=== PATIENT | male | born 1975 | race American Indian/Alaskan Native ===

== ENCOUNTER 2017-02-05 18:54 | Emergency (ER) | payer OTHER ==
[2017-02-05 18:54] VITALS: BMI 39.5
[2017-02-05] MEDS ORDERED: Oxycodone/Acetaminophen 5/325 mg Tab PO STA (19:37)
[2017-02-05] MEDS ORDERED: Sodium Chloride 0.9% 1,000 ML IV STA (19:37)
--- NOTE | 2017-02-05 19:38 | ED PDOC ---
HPI: General Adult Time Seen by Provider: 02/05/17 19:13 Chief Complaint (Nursing): Abdominal Pain History Per: Patient Additional Complaint(s): Pt. states for the past 2 days he's had non-radiating epigastric abdominal pain. 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 He then went to [facility] today and had blood work and a repeat CT done and was told everything was normal so he was dc'd. Pain has persisted prompting this ED visit. +nause and non-bloody vomiting. Denies fever, chest pain, SOB, diarrhea, trauma, hematemesis. Past Medical History Reviewed: Historical Data, Nursing Documentation, Vital Signs Vital Signs: Last Vital Signs Temp 99.9 F H 02/05/17 18:56 Pulse 70 02/05/17 18:56 Resp 18 02/05/17 18:56 BP 116/83 02/05/17 18:56 Pulse Ox 99 02/05/17 19:41 - Medical History PMH: Anemia, Asthma, Gall Bladder Disease (LAP SILVIA ON 09/27/15), Pancreatitis Denies: Depression, HTN, Chronic Kidney Disease - Surgical History Surgical History: Cholecystectomy Denies: Pacemaker - Family History Family History: States: No Known Family Hx - Immunization History Hx Tetanus Toxoid Vaccination: No Hx Influenza Vaccination: Yes Hx Pneumococcal Vaccination: No - Home Medications Home Medications: Ambulatory Orders Medication Instructions Recorded Omeprazole [Prilosec] 40 mg PO DAILY #14 ecc 11/30/15 Ursodiol 300 mg PO BID 12/12/15 Prednisone [Shirin] 5 mg PO DAILY 04/09/16 Omeprazole 40 mg PO DAILY #30 natasha. 05/21/16 - Allergies Allergies/Adverse Reactions: Allergies Allergy/AdvReac Type Severity Reaction Status Date / Time No Known Allergies Allergy Verified 05/21/16 07:14 Review of Systems ROS Statement: Except As Marked, All Systems Reviewed And Found Negative Gastrointestinal: Positive for: Nausea, Vomiting, Abdominal Pain Physical Exam - Reviewed Nursing Documentation Reviewed: Yes Vital Signs Reviewed: Yes - Physical Exam Appears: Positive for: Well, Non-toxic, No Acute Distress Head Exam: Positive for: ATRAUMATIC, NORMAL INSPECTION, NORMOCEPHALIC Skin: Positive for: Normal Color, Warm. Negative for: Rash Eye Exam: Positive for: EOMI, Normal appearance, PERRL ENT: Positive for: Normal ENT Inspection Neck: Positive for: Normal, Painless ROM Cardiovascular/Chest: Positive for: Regular Rate, Rhythm Respiratory: Positive for: CNT, Normal Breath Sounds Gastrointestinal/Abdominal: Positive for: Normal Exam, Bowel Sounds, Soft. Negative for: Tenderness, Mass Back: Positive for: Normal Inspection. Negative for: L CVA Tenderness, R CVA Tenderness Extremity: Positive for: Normal ROM Neurologic/Psych: Positive for: Alert, Oriented. Negative for: Aphasia, Facial Droop - ECG O2 Sat by Pulse Oximetry: 99 - Progress ED Course And Treament: Labs ordered. Percocet 1 tab PO, zofran 4mg IV, IV NS bolus ordered. Disposition - Clinical Impression Clinical Impression: Abdominal pain, Fever - Patient ED Disposition Is Patient to be Admitted: Transfer of Care (Signed out to [facility] pending diagnostics, labs.) - Disposition Disposition Time: 20:00 Condition: STABLE Forms: [employer] (Nepali)
[2017-02-05 20:16] LABS: BASO # 0.1 K/uL (0.0-0.2); BASO % 0.6 % (0.0-2.0); EOS # 0.2 K/uL (0.0-0.7); EOS % 1.4 % (0.0-4.0); HEMATOCRIT 39.6 % (35.0-51.0); LYMPH # 1.6 K/uL (1.0-4.3); LYMPH % 14.2 % (20.0-40.0); MEAN CELL VOLUME 83.9 fl (80.0-94.0); MEAN CORPUSCULAR HEMOGLOBIN 26.5 pg (27.0-31.0); MEAN CORPUSCULAR HGB CONC 31.6 g/dL (33.0-37.0); MEAN PLATELET VOLUME 8.2 fl (7.2-11.7); MONO # 1.3 K/uL (0.0-0.8); MONO % 11.3 % (0.0-10.0); NEUT # 8.3 K/uL (1.8-7.0); NEUT % 72.5 % (50.0-75.0); RED CELL DISTRIBUTION WIDTH 17.6 % (11.5-14.5); WHITE BLOOD COUNT 11.5 K/uL (4.8-10.8)
[2017-02-05 20:17] LABS: VENOUS BLOOD GAS BASE EXCESS -5.6 mmol/L (0.0-2.0); VENOUS BLOOD GAS PCO2 66 mmHg (40-60); VENOUS BLOOD PH 7.17 (7.32-7.43)
[2017-02-05 20:23] LABS: ALB/GLOB RATIO 0.9 (1.0-2.1); ALKALINE PHOSPHATASE 142 U/L (38-126); ALT/SGPT 23 U/L (21-72); AST/SGOT 32 U/L (17-59); BILIRUBIN,TOTAL 1.3 mg/dl (0.2-1.3); BLOOD UREA NITROGEN 19 mg/dl (9-20); CALCIUM 9.4 mg/dL (8.4-10.2); CARBON DIOXIDE 24 mmol/L (22-30); CHLORIDE 103 mmol/L (98-107); GFR AFRICAN-AMERICAN > 60; GLUCOSE,RANDOM 111 mg/dL (75-110); LIPASE 92 U/L (23-300); POTASSIUM 4.2 MMOL/L (3.6-5.0); SODIUM 136 mmol/l (132-148); TOTAL PROTEIN 8.5 G/DL (6.3-8.2)
[2017-02-05 20:28] LABS: ABG ALLEN TEST YES; ARTERIAL BLOOD GAS HCO3 26.7 mmol/L (21-28); ARTERIAL BLOOD GAS PH 7.51 (7.35-7.45); ARTERIAL BLOOD GAS PO2 67 mm/Hg (80-100)
--- NOTE | 2017-02-05 21:02 | ED PDOC ---
- Laboratory Results Result Diagrams: 02/05/17 19:35 02/05/17 20:05 - ECG O2 Sat by Pulse Oximetry: 99 - Progress ED Course And Treament: Case endorsed to fiction and nonfiction writer prose from [facility] pending labs, xray, re-eval EXAM: XR Chest, 2 Views CLINICAL HISTORY: 41 years old, male; Signs and symptoms; Fever TECHNIQUE: Frontal and lateral views of the chest. COMPARISON: No relevant prior studies available. FINDINGS: Lungs: There is elevation of the right hemidiaphragm. Lung bases are suboptimally evaluated on this portable radiograph. PA and lateral radiograph are recommended. The upper lung zones are clear. Pleural space: Unremarkable. No pneumothorax. Heart: Unremarkable. No cardiomegaly. Mediastinum: Unremarkable. Bones/joints: Unremarkable. Upper abdomen: Patient status post cholecystectomy. IMPRESSION: Clear upper and mid lungs. Lung bases are not well evaluated on this portable radiograph secondary to patient's body habitus. 23:00 Patient resting comfortably, vitals improved. WBC improved from yesterday. Case discussed with ED attending Dr. Cruz; agrees with plan to discharge and follow up outpatient therapy. Rx ibuprofen and tramadol provided. Patient educated on risk of narcotic abuse/ dependence/overdose; advised to take as needed for severe pain only. Return to ED for worsening/concerning symptoms. Disposition - Clinical Impression Clinical Impression: Abdominal pain, Fever - POA Present On Arrival: None - Disposition Disposition: Routine/Home Disposition Time: 23:09 Condition: IMPROVED Prescriptions: Ibuprofen [Motrin Tab] 1 tab PO Q6 PRN #20 tab PRN Reason: Fever >100.4 F traMADol [Ultram] 50 mg PO Q8 PRN #10 tab PRN Reason: Pain, Severe (8-10) Instructions: Fever in Adults (ED), Abdominal Pain (ED) Forms: [facility] ED School/Work Excuse
[2017-02-05 21:45] LABS: URINE BACTERIA RARE (<OCC); URINE BILIRUBIN NEGATIVE (NEGATIVE); URINE BLOOD NEGATIVE (NEGATIVE); URINE COLOR YELLOW (YELLOW); URINE GLUCOSE (UA) NEG (Normal); URINE KETONE NEGATIVE (NEGATIVE); URINE LEUKOCYTE ESTERASE NEG Leu/uL (Negative); URINE PROTEIN 30 mg/dL (NEGATIVE); URINE UROBILINOGEN 0.2-1.0 mg/dL (0.2-1.0); WBC URINE 1 /hpf (0-5)
[2017-02-05 21:59] LABS: RBC URINE < 1 /hpf (0-3)
[2017-02-05 23:49] VITALS: BP 110/78; PULSE 96; RESP 16; TEMP 98.7
[2017-02-06 01:11] VITALS: O2SAT 99
--- NOTE | 2017-02-06 08:12 | RAD ---
HISTORY: COMPARISON: No prior. TECHNIQUE: Chest PA and lateral FINDINGS: LINES AND TUBES: None. LUNG AND PLEURA: There are low lung volumes which may be related to poor inspiratory effort. The lungs are clear. HEART AND MEDIASTINUM: The heart is not enlarged. The hilar and mediastinal contours are within normal limits. SKELETAL STRUCTURES: The bony structures are within normal limits for the patient's age. VISUALIZED UPPER ABDOMEN: Normal. OTHER FINDINGS: None. IMPRESSION: No acute findings.
== END 2017-02-05 23:50 | disposition home or self-care (01) ==
LOC: H.ER 18:54
DX: R10.13 Epigastric pain (principal); R50.9 Fever, unspecified
CPT/HCPCS: 71020; 80053; 81003; 82803; 83690; 85025; 87040; 87086; 87804; 96361; 96374; 99282; J2405; J7040

== ENCOUNTER 2017-02-27 09:02 | Emergency (ER) | payer OTHER ==
[2017-02-27 09:02] VITALS: BMI 39.5
[2017-02-27 09:08] VITALS: O2SAT 98
[2017-02-27 09:09] VITALS: TEMP 98
[2017-02-27] MEDS ORDERED: Sodium Chloride 0.9% 1,000 ML IV STA (09:35)
[2017-02-27] MEDS ORDERED: Oxycodone/Acetaminophen 5/325 mg Tab PO STA (09:35)
--- NOTE | 2017-02-27 09:37 | ED PDOC ---
HPI: Abdomen Time Seen by Provider: 02/27/17 09:18 Chief Complaint (Nursing): Abdominal Pain History Per: Patient Onset/Duration Of Symptoms: Other (3 weeks) Current Symptoms Are (Timing): Still Present Severity: Mild Location Of Pain/Discomfort: RUQ Quality Of Discomfort: Unable To Describe Associated Symptoms: denies: Fever, Vomiting, Diarrhea, Urinary Symptoms Additional Complaint(s): Right sided abd pain radiating to right mid back intermittently x 3 weeks. Denies nausea or vomiting. No fever or urinary sxs. Pain in back worse on movement and inspiration. Denies fever or cough. Pt states h/o autoimmune disease for which he is taking steroids. Past Medical History Vital Signs: Last Vital Signs Temp 98 F 02/27/17 09:07 Pulse 88 02/27/17 09:07 Resp 20 02/27/17 09:07 BP 124/94 H 02/27/17 09:07 Pulse Ox 98 02/27/17 09:39 - Medical History PMH: Anemia, Asthma, Gall Bladder Disease (LAP SILVIA ON 09/27/15), Pancreatitis Denies: Depression, HTN, Chronic Kidney Disease - Surgical History Surgical History: Cholecystectomy Denies: Pacemaker - Family History Family History: States: Unknown Family Hx - Immunization History Hx Tetanus Toxoid Vaccination: No Hx Influenza Vaccination: Yes Hx Pneumococcal Vaccination: No - Home Medications Home Medications: Ambulatory Orders Medication Instructions Recorded Omeprazole [Prilosec] 40 mg PO DAILY #14 ecc 11/30/15 Ursodiol 300 mg PO BID 12/12/15 Prednisone [Shirin] 5 mg PO DAILY 04/09/16 Omeprazole 40 mg PO DAILY #30 natasha. 05/21/16 Ibuprofen [Motrin Tab] 1 tab PO Q6 PRN #20 tab 02/05/17 traMADol [Ultram] 50 mg PO Q8 PRN #10 tab 02/05/17 Azithromycin [Zithromax] 250 mg PO DAILY #6 tab 02/27/17 - Allergies Allergies/Adverse Reactions: Allergies Allergy/AdvReac Type Severity Reaction Status Date / Time No Known Allergies Allergy Verified 02/27/17 09:07 Review of Systems ROS Statement: Except As Marked, All Systems Reviewed And Found Negative Constitutional: Negative for: Fever Gastrointestinal: Positive for: Abdominal Pain. Negative for: Vomiting, Diarrhea Genitourinary Male: Negative for: Dysuria, Frequency Musculoskeletal: Positive for: Back Pain Physical Exam - Reviewed Nursing Documentation Reviewed: Yes Vital Signs Reviewed: Yes - Physical Exam Appears: Positive for: Non-toxic, No Acute Distress Head Exam: Positive for: ATRAUMATIC, NORMAL INSPECTION, NORMOCEPHALIC Skin: Positive for: Normal Color, Warm, DRY Eye Exam: Positive for: EOMI, Normal appearance, PERRL ENT: Positive for: Normal ENT Inspection Neck: Positive for: Normal, Painless ROM Cardiovascular/Chest: Positive for: Regular Rate, Rhythm Respiratory: Positive for: CNT, Normal Breath Sounds Gastrointestinal/Abdominal: Positive for: Bowel Sounds, Soft, Tenderness (RUQ) Back: Positive for: Normal Inspection. Negative for: L CVA Tenderness, R CVA Tenderness Extremity: Positive for: Normal ROM Neurologic/Psych: Positive for: Alert, Oriented - Laboratory Results Result Diagrams: 02/27/17 09:45 02/27/17 09:45 - ECG O2 Sat by Pulse Oximetry: 98 Disposition - Clinical Impression Clinical Impression: Atelectasis of right lung - Patient ED Disposition Is Patient to be Admitted: No Counseled Patient/Family Regarding: Studies Performed, Diagnosis, Need For Followup, Rx Given - Disposition Referrals: [facility] [Outside] Disposition: Routine/Home Disposition Time: 11:12 Condition: FAIR Prescriptions: Azithromycin [Zithromax] 250 mg PO DAILY #6 tab Instructions: Atelectasis (ED) Forms: [employer] (Macedonian)
[2017-02-27 10:02] LABS: BASO # 0.1 K/uL (0.0-0.2); BASO % 0.8 % (0.0-2.0); EOS # 0.1 K/uL (0.0-0.7); HEMATOCRIT 36.8 % (35.0-51.0); LYMPH # 1.1 K/uL (1.0-4.3); LYMPH % 11.5 % (20.0-40.0); MEAN CORPUSCULAR HEMOGLOBIN 26.7 pg (27.0-31.0); MEAN CORPUSCULAR HGB CONC 32.1 g/dL (33.0-37.0); MEAN PLATELET VOLUME 7.9 fl (7.2-11.7); MONO # 0.8 K/uL (0.0-0.8); MONO % 8.3 % (0.0-10.0); NEUT # 7.7 K/uL (1.8-7.0); NEUT % 78.4 % (50.0-75.0); NRBC % 0.1 % (0.0-0.0); RED CELL DISTRIBUTION WIDTH 17.3 % (11.5-14.5); WHITE BLOOD COUNT 9.8 K/uL (4.8-10.8)
--- NOTE | 2017-02-27 10:04 | RAD ---
HISTORY: Right sided pleuritic chest pain COMPARISON: 02/05/2017 TECHNIQUE: Chest PA and lateral FINDINGS: LUNGS: There is chronic elevation of the right hemidiaphragm. There is some linear atelectasis at the right lung base. The lungs are otherwise clear PLEURA: No significant pleural effusion identified. No pneumothorax apparent. CARDIOVASCULAR: Normal. OSSEOUS STRUCTURES: No significant abnormalities. VISUALIZED UPPER ABDOMEN: Normal. OTHER FINDINGS: None. IMPRESSION: There is chronic elevation of the right hemidiaphragm. There is some linear atelectasis at the right lung base. The lungs are otherwise clear
[2017-02-27 10:20] LABS: ALB/GLOB RATIO 0.9 (1.0-2.1); ALKALINE PHOSPHATASE 117 U/L (38-126); ALT/SGPT 15 U/L (21-72); AST/SGOT 23 U/L (17-59); BILIRUBIN,TOTAL 0.8 mg/dl (0.2-1.3); BLOOD UREA NITROGEN 14 mg/dl (9-20); CALCIUM 9.2 mg/dL (8.4-10.2); CARBON DIOXIDE 22 mmol/L (22-30); CHLORIDE 106 mmol/L (98-107); GFR AFRICAN-AMERICAN > 60; GLUCOSE,RANDOM 103 mg/dL (75-110); POTASSIUM 4.3 MMOL/L (3.6-5.0); SODIUM 142 mmol/l (132-148); TOTAL PROTEIN 8.2 G/DL (6.3-8.2)
[2017-02-27 11:25] VITALS: BP 108/74; PULSE 84; RESP 18
== END 2017-02-27 11:31 | disposition home or self-care (01) ==
LOC: H.ER 09:02
DX: K85.90 Acute pancreatitis without necrosis or infection, unspecified (principal); J98.11 Atelectasis
CPT/HCPCS: 71020; 80053; 85025; 85610; 99282; J7040